=== PATIENT | female | born 1975 | race Two or more races ===

== ENCOUNTER 2022-08-26 20:45 | Emergency (ER) | payer OTHER ==
[~2022-08-26] VITALS: Ht 170.2 cm; Wt 127.0 kg
[~2022-08-26 20:45] MED LIST: NON
[2022-08-26] MEDS ORDERED: COZAAR50 MG PO (23:33)
== END 2022-08-26 23:46 | disposition home or self-care (01) ==
LOC: ER 20:45
DX: I16.9 Hypertensive crisis, unspecified (principal)

== ENCOUNTER 2023-06-18 22:55 | Emergency (ER) | payer OTHER ==
[~2023-06-18] VITALS: Ht 170.2 cm; Wt 108.9 kg
[~2023-06-18 22:55] MED LIST changes: +COZAAR50 MG PO
[2023-06-19 01:28] LABS: HEMATOCRIT 42.6 % (36.0-45.00); HEMOGLOBIN 14.3 g/dL (12.0-15.00); MEAN CELL VOLUME 85.6 fL (80.00-100.00); MEAN CORPUSCULAR HEMOGLOBIN 28.8 pg (27.00-32.0); MEAN CORPUSCULAR HGB CONC 33.7 g/dl (32.0-36.0); PLATELET COUNT 203 K/uL (150-450); RED BLOOD COUNT 4.97 M/uL (4.00-6.00)
[2023-06-19] MEDS ORDERED: ZYRTEC10 MG PO (02:36)
[2023-06-19] MEDS ORDERED: ZITHROMAX500 MG PO (02:36)
[2023-06-19] MEDS ORDERED: TUSNEL LIQUID178 ML PO (02:36)
== END 2023-06-19 02:49 | disposition home or self-care (01) ==
LOC: ER 22:56
PROVIDERS: General Practice
DX: B34.9 Viral infection, unspecified (principal); Z91.013 Allergy to seafood; Z20.822 Contact with and (suspected) exposure to COVID-19